=== PATIENT | female | born 1980 | race Two or more races ===

== ENCOUNTER 2020-10-13 09:14 | Emergency (ER) | payer MEDICAID, OTHER ==
[~2020-10-13] VITALS: Ht 170.2 cm; Wt 74.8 kg
[2020-10-13 10:33] VITALS: BP 105/69
== END 2020-10-13 10:46 | disposition home or self-care (01) ==
LOC: ER 09:14
DX: J06.9 Acute upper respiratory infection, unspecified (principal); R42 Dizziness and giddiness; J45.909 Unspecified asthma, uncomplicated
CPT/HCPCS: 71045

== ENCOUNTER 2021-07-12 09:30 | Emergency (ER) | payer MEDICAID ==
[~2021-07-12] VITALS: Ht 170.2 cm; Wt 74.8 kg
[2021-07-12 09:53] LABS: Urine Bacteria NONE SEEN /hpf (None Seen); Urine Blood 1+ /uL (Negative); Urine Mucus FEW (None Seen); Urine Specific Gravity 1.026 (1.001-1.035); Urine WBC 53 /hpf (0 - 5)
[2021-07-12 10:21] VITALS: BP 127/76
[2021-07-12] MEDS ORDERED: IBUPROFEN 600 MG TAB PO ONE (10:45)
== END 2021-07-12 10:50 | disposition home or self-care (01) ==
LOC: ER 09:30
DX: N39.0 Urinary tract infection, site not specified (principal); N83.202 Unspecified ovarian cyst, left side; J45.909 Unspecified asthma, uncomplicated
CPT/HCPCS: 74176; 81001

== ENCOUNTER 2022-03-30 19:14 | Emergency (ER) | payer MEDICAID ==
[~2022-03-30] VITALS: Ht 162.6 cm; Wt 77.1 kg
[2022-03-30 19:15] VITALS: BP 128/78
== END 2022-03-31 05:23 | disposition left against medical advice (07) ==
LOC: ER 19:16
DX: R51.9 Headache, unspecified (principal); R11.0 Nausea; H53.8 Other visual disturbances; Z53.21 Procedure and treatment not carried out due to patient leaving prior to being seen by health care provider

== ENCOUNTER 2022-03-31 17:40 | Emergency (ER) | payer MEDICAID ==
[~2022-03-31] VITALS: Ht 170.2 cm; Wt 77.1 kg
[2022-03-31 22:35] VITALS: BP 139/77
== END 2022-03-31 22:42 | disposition home or self-care (01) ==
LOC: ER 17:40
DX: R51.9 Headache, unspecified (principal); J45.909 Unspecified asthma, uncomplicated; R42 Dizziness and giddiness
CPT/HCPCS: 70450